=== PATIENT | male | born 1950 | race Caucasian/White ===

== ENCOUNTER → 2016-06-10 | Outpatient (CLI) | payer OTHER ==
--- NOTE | 2016-06-10 13:46 | REP ---
PA and lateral chest: Comparison is 04/23/2014. The lung ayers are clear. The cardiac size is normal The tatiana, mediastinum, and bony thorax are unremarkable except for mild thoracic scoliosis convex left, unchanged. . Impression: Negative PA and lateral chest. . There is no interval change. Signed by Jimi Kauffman MD 06/10/2016 01:38 P
[2016-06-10 13:56] LABS: MEAN CORPUSCULAR HEMOGLOBIN 31.7 pg (27.0-33.0); RED CELL DISTRIBUTION WIDTH 12.5 % (11.5-14.5); WHITE BLOOD COUNT 5.6 K/mm3 (4.0-10.0)
--- NOTE | 2016-06-10 13:57 | REP ---
RIGHT SHOULDER SERIES: Three views of the right shoulder are performed. There is no acute fracture or dislocation. There is moderate narrowing and spurring at the acromioclavicular joint. IMPRESSION: Moderate degenerative changes AC joint. Further evaluation may be made with MRI if clinically indicated. Signed by Jimi Valladares MD 06/10/2016 05:39 P
[2016-06-10 14:32] LABS: ALBUMIN 4.3 GM/DL (3.2-5.2); ALBUMIN/GLOBULIN RATIO 1.23 (1.00-1.93); ALKALINE PHOSPHATASE 86 U/L (45-117); ALT/SGPT 16 U/L (12-78); ANION GAP 5 MEQ/L (8-16); AST/SGOT 18 U/L (15-37); BILIRUBIN,TOTAL 0.3 MG/DL (0.2-1.0); BLOOD UREA NITROGEN 8 MG/DL (7-18); CALCIUM LEVEL 9.3 MG/DL (8.8-10.2); CARBON DIOXIDE LEVEL 33 MEQ/L (21-32); CHLORIDE LEVEL 102 MEQ/L (98-107); CHOLESTEROL LEVEL 202 MG/DL (<200); CREATININE FOR GFR 0.79 MG/DL (0.70-1.30); GLOMERULAR FILTRATION RATE > 60.0 (>49); GLUCOSE, FASTING 94 MG/DL (80-110); POTASSIUM SERUM 4.9 MEQ/L (3.5-5.1); SODIUM LEVEL 140 MEQ/L (136-145); TOTAL PROTEIN 7.8 GM/DL (6.4-8.2); TRIGLYCERIDES LEVEL 84 MG/DL (<150)
--- NOTE | 2016-06-10 14:53 | REP ---
RIGHT ELBOW, FOUR VIEWS: HISTORY: Arthritis. There is no acute fracture or dislocation. The joint space is normal in appearance. A small ossified density is present anterior to the proximal ulna. This represents ligamentous or tendon calcification. IMPRESSION: There is no acute fracture or dislocation. Signed by Renzo Wu MD 06/10/2016 02:57 P
--- NOTE | 2016-06-10 20:47 | ECGEPIP ---
Stationary ECG Study [facility] Test Date: 2016-06-10 Pat Name: NOVA MENDOZA Department: Room: - Gender: M [employer]: BOONE : 1950 Requested By: Denny Weiss Order Number: [id number] Reading MD: Mark Anthony Elaine Measurements Intervals [place] Rate: 69 P: 74 CO: 148 QRS: 38 QRSD: 107 T: 48 QT: 391 QTc: 420 Interpretive Statements Normal sinus rhythm/sinus arrhythmia Slightly low voltages, indeterminate frontal axis, incomplete RBBB, and persistent S waves in V5 and V6; body habitus versus pulmonary disease No change from tracing 04/23/14. Electronically Signed On 06-10-2016 20:47:15 EDT by Mark Anthony Elaine
== END ==
LOC: M LAB 11:38
PROVIDERS: ATTEND Family Medicine
DX: J44.9 Chronic obstructive pulmonary disease, unspecified (principal); M19.021 Primary osteoarthritis, right elbow; M19.011 Primary osteoarthritis, right shoulder

== ENCOUNTER → 2021-07-22 | Outpatient (CLI) | payer MEDICARE ==
[2021-07-22 11:54] LABS: HEMATOCRIT 45.9 % (42.0-52.0); HEMOGLOBIN 15.1 g/dl (13.5-17.5); MEAN CORPUSCULAR HEMOGLOBIN 31.9 pg (27.0-33.0); MEAN CORPUSCULAR HGB CONC 32.9 g/dl (32.0-36.5); PLATELET COUNT, AUTOMATED 291 10^3/uL (150-450); RED BLOOD COUNT 4.73 10^6/uL (4.30-6.10); WHITE BLOOD COUNT 8.8 10^3/uL (4.0-10.0)
[2021-07-22 12:29] LABS: ALT/SGPT 28 U/L (12-78); BILIRUBIN,TOTAL 0.5 MG/DL (0.2-1.0); BLOOD UREA NITROGEN 17 MG/DL (7-18); CALCIUM LEVEL 9.9 MG/DL (8.8-10.2); CARBON DIOXIDE LEVEL 30 MEQ/L (21-32); CHLORIDE LEVEL 104 MEQ/L (98-107); CREATININE FOR GFR 0.91 MG/DL (0.70-1.30); GLOMERULAR FILTRATION RATE > 60.0 (>49); GLUCOSE, FASTING 112 MG/DL (70-100); POTASSIUM SERUM 4.4 MEQ/L (3.5-5.1); SODIUM LEVEL 140 MEQ/L (136-145); TRIGLYCERIDES LEVEL 89 MG/DL (<150)
[2021-07-22 12:30] LABS: ALBUMIN 4.1 GM/DL (3.2-5.2); CHOLESTEROL LEVEL 209 MG/DL (<200); CHOLESTEROL RISK RATIO 4.354 (<5); HDL CHOLESTEROL 48 MG/DL (>40); LDL CHOLESTEROL 143 MG/DL (<100); NON-HDL-C 161 MG/DL; PROSTATIC SPECIFIC AG MONITOR 3.76 NG/ML (< 4.00); TOTAL 25(OH) VITAMIN D 28.2 NG/ML (30.0-100.0); TOTAL PROTEIN 7.7 GM/DL (6.4-8.2)
[2021-07-22 13:12] LABS: HEMOGLOBIN A1c 5.7 %
== END ==
LOC: M LAB 10:24
PROVIDERS: ATTEND Family Medicine
DX: R94.31 Abnormal electrocardiogram [ECG] [EKG] (principal); I45.10 Unspecified right bundle-branch block; I10 Essential (primary) hypertension; R53.83 Other fatigue; J44.9 Chronic obstructive pulmonary disease, unspecified; E03.9 Hypothyroidism, unspecified

== ENCOUNTER → 2021-10-21 | Outpatient (CLI) | payer MEDICARE, MEDICAID | LOC: M RAD 13:40 | PROVIDERS: ATTEND Internal Medicine Cardiovascular Disease | DX: S15.092A Other specified injury of left carotid artery, initial encounter (principal) ==